=== PATIENT | male | born 1990 | race Two or more races ===

== ENCOUNTER 2018-03-03 10:23 | Emergency (ER) | payer MEDICAID ==
[~2018-03-03] VITALS: Ht 172.7 cm; Wt 78.5 kg
[2018-03-03] MEDS ORDERED: SODIUM CHLORIDE 0.9% 1,000 ML IV ONE (11:08)
[2018-03-03] MEDS ORDERED: LORazepam 2MG/ML-1ML VIAL IV ONE (11:15)
[2018-03-03 11:33] LABS: Basophils # (auto) 0 uL; Basophils % (auto) 0.7 % (0.0-2.0); Eosinophils # (auto) 0.1 uL; Lymphocytes # (auto) 0.9 uL; Lymphocytes % (auto) 13.6 % (10.0-50.0); Mean Corpuscular Hemoglobin 28.9 pg (28.0-32.0); Monocytes # (auto) 0.6 uL; Red Cell Distribution Width 13.3 % (11.8-14.3)
[2018-03-03 11:36] LABS: Eosinophils % (auto) 1.9 % (0.0-7.0); Hematocrit 52.3 % (41.0-53.0); Hemoglobin 17.2 g/dL (13.5-17.5); Mean Corpuscular Volume 87.7 fL (80.0-100.0); Monocytes % (auto) 9.1 % (0.0-12.0); Neutrophils % (auto) 74.7 % (37.0-80.0); Platelet Count (auto) 251 10^3/uL (140-450); Red Blood Cells 5.96 10^6/uL (4.5-5.90); White Blood Cell 6.7 10^3/uL (4.4-10.8)
[2018-03-03 11:41] LABS: BUN/Creatinine Ratio 13.4; Calcium 9.6 mg/dL (8.5-10.1); Potassium 3.4 mmol/L (3.5-5.1)
[2018-03-03 14:32] VITALS: BP 144/90
== END 2018-03-03 14:37 | disposition home or self-care (01) ==
LOC: ER 10:23
DX: F12.188 Cannabis abuse with other cannabis-induced disorder (principal); E11.9 Type 2 diabetes mellitus without complications; F12.10 Cannabis abuse, uncomplicated; E07.89 Other specified disorders of thyroid
CPT/HCPCS: 36415; 80048; 82962; 85025; 93005; 94761

== ENCOUNTER 2018-04-07 09:04 | Emergency (ER) | payer MEDICAID ==
[~2018-04-07] VITALS: Ht 172.7 cm; Wt 77.1 kg
[2018-04-07 09:45] LABS: Basophils # (auto) 0 uL; Basophils % (auto) 0.7 % (0.0-2.0); Eosinophils # (auto) 0.2 uL; Eosinophils % (auto) 2.8 % (0.0-7.0); Hemoglobin 17.5 g/dL (13.5-17.5); Lymphocytes # (auto) 1.5 uL; Lymphocytes % (auto) 22.3 % (10.0-50.0); Mean Corpuscular Hemoglobin 29.9 pg (28.0-32.0); Mean Corpuscular Hgb Conc. 34.4 g/dL (32.0-36.0); Mean Corpuscular Volume 86.9 fL (80.0-100.0); Monocytes # (auto) 0.4 uL; Monocytes % (auto) 5.5 % (0.0-12.0); Neutrophils # (auto) 4.5 uL; Neutrophils % (auto) 68.7 % (37.0-80.0); Nucleated Red Blood Cells % 0.2 %; Platelet Count (auto) 284 10^3/uL (140-450); Red Blood Cells 5.87 10^6/uL (4.5-5.90); Red Cell Distribution Width 13.3 % (11.8-14.3); White Blood Cell 6.6 10^3/uL (4.4-10.8)
[2018-04-07 10:02] LABS: Urine Bacteria NONE SEEN /hpf (None Seen); Urine Blood Negative /uL (Negative); Urine Mucus FEW (None Seen); Urine Specific Gravity 1.018 (1.001-1.035); Urine WBC 1 /hpf (0 - 3)
[2018-04-07 10:02] LABS: Albumin 5.2 g/dL (3.4-5.0); Calcium 9.5 mg/dL (8.5-10.1); Potassium 3.5 mmol/L (3.5-5.1)
[2018-04-07 10:07] LABS: BUN/Creatinine Ratio 13.2; Bilirubin, Total 1.5 mg/dL (0.2-1.0); Total Protein 9.2 g/dL (6.4-8.2)
[2018-04-07 11:49] VITALS: BP 118/79
== END 2018-04-07 11:52 | disposition home or self-care (01) ==
LOC: ER 09:04
DX: R10.9 Unspecified abdominal pain (principal); R19.7 Diarrhea, unspecified; R11.0 Nausea; E11.9 Type 2 diabetes mellitus without complications; F12.10 Cannabis abuse, uncomplicated; Z86.39 Personal history of other endocrine, nutritional and metabolic disease
CPT/HCPCS: 36415; 74176; 80053; 81001; 82150; 82962; 83690; 85025

== ENCOUNTER 2018-05-20 14:34 | Inpatient (IN) | payer MEDICAID ==
[~2018-05-20] VITALS: Ht 172.7 cm; Wt 75.2 kg
[2018-05-20] MEDS ORDERED: SODIUM CHLORIDE 0.9% 1,000 ML IV ONE ×2 (16:00)
[2018-05-20] MEDS ORDERED: MORPHINE SULFATE 4 MG/ML SYR/VIAL IV ONE (16:00)
[2018-05-20] MEDS ORDERED: ONDANSETRON HCL 4 MG/2 ML VIAL IV ONE (16:00)
[2018-05-20 16:13] LABS: Basophils # (auto) 0.1 uL; Basophils % (auto) 0.8 % (0.0-2.0); Eosinophils # (auto) 0.4 uL; Eosinophils % (auto) 4.1 % (0.0-7.0); Hematocrit 48.4 % (41.0-53.0); Hemoglobin 16.5 g/dL (13.5-17.5); Lymphocytes # (auto) 1.6 uL; Lymphocytes % (auto) 17.8 % (10.0-50.0); Mean Corpuscular Hemoglobin 29.7 pg (28.0-32.0); Mean Corpuscular Hgb Conc. 34.1 g/dL (32.0-36.0); Mean Corpuscular Volume 87.1 fL (80.0-100.0); Monocytes # (auto) 0.7 uL; Monocytes % (auto) 8.2 % (0.0-12.0); Neutrophils # (auto) 6.1 uL; Neutrophils % (auto) 69.1 % (37.0-80.0); Nucleated Red Blood Cells % 0.1 %; Platelet Count (auto) 287 10^3/uL (140-450); Red Blood Cells 5.56 10^6/uL (4.5-5.90); Red Cell Distribution Width 14.2 % (11.8-14.3); White Blood Cell 8.8 10^3/uL (4.4-10.8)
[2018-05-20 16:29] LABS: Albumin 4.8 g/dL (3.4-5.0); Calcium 9.4 mg/dL (8.5-10.1); Potassium 3.7 mmol/L (3.5-5.1)
[2018-05-20] MEDS ORDERED: metroNIDAZOLE 500MG/100ML 100 ML IV ONE (16:30)
[2018-05-20 16:33] LABS: BUN/Creatinine Ratio 10.4; Bilirubin, Total 1.4 mg/dL (0.2-1.0); Total Protein 8.7 g/dL (6.4-8.2)
[2018-05-20] MEDS ORDERED: HYDROcodone-ACET 5/325MG TAB PO PRN (20:45)
[2018-05-20] MEDS ORDERED: PANTOPRAZOLE 40 MG/10 ML VIAL IV ONE (20:45)
[2018-05-20] MEDS ORDERED: DEXTROSE (50%) 50ML SYRG IV PRN (20:45)
[2018-05-21] MEDS: ACCU-CHEK COMFORT CURVE STRIP VI SCH ×5 (00:19→23:39)
[2018-05-21] MEDS: InsuLIN REG 1unit/0.01ml Soln (100units/ml) SC SCH ×5 (06:00→23:40)
[2018-05-21 07:34] LABS: Urine Bacteria NONE SEEN /hpf (None Seen); Urine Blood Negative /uL (Negative); Urine Mucus FEW (None Seen); Urine Specific Gravity 1.018 (1.001-1.035); Urine WBC 1 /hpf (0 - 3)
[2018-05-21] MEDS: MORPHINE SULF INJ 2 MG/ML SYRINGE 1ML IV PRN ×4 (08:19→22:42)
--- NOTE | 2018-05-21 09:50 | NUR ---
Telemetry admit from [facility] ULLOA admitted to [facility] unit. Patient oriented to YFN DEVINE RN primary RN, unit, room 223B, bed, and unit policies regarding patient care and visiting hours. Patient weighed by bedscale and encouraged to call if they need something. All questions and concerns addressed, patient verbalized understanding. Bed in low and locked position, rails up x2, no-slip socks on. Family at bedside.
[2018-05-21] MEDS ORDERED: PANTOPRAZOLE 40 MG/10 ML VIAL IV SCH (10:00)
--- NOTE | 2018-05-21 10:00 | NUR ---
MRSA SWAB COLLECTED
[2018-05-21 10:16] VITALS: BP 135/70
[2018-05-21 10:34] LABS: Basophils # (auto) 0.1 uL; Basophils % (auto) 1.2 % (0.0-2.0); Eosinophils # (auto) 0.5 uL; Eosinophils % (auto) 9.9 % (0.0-7.0); Hematocrit 38.9 % (41.0-53.0); Hemoglobin 13.3 g/dL (13.5-17.5); Lymphocytes # (auto) 1.3 uL; Lymphocytes % (auto) 28.1 % (10.0-50.0); Mean Corpuscular Hemoglobin 30.1 pg (28.0-32.0); Mean Corpuscular Hgb Conc. 34.3 g/dL (32.0-36.0); Mean Corpuscular Volume 87.7 fL (80.0-100.0); Monocytes # (auto) 0.3 uL; Monocytes % (auto) 7.4 % (0.0-12.0); Neutrophils # (auto) 2.5 uL; Neutrophils % (auto) 53.4 % (37.0-80.0); Platelet Count (auto) 220 10^3/uL (140-450); Red Blood Cells 4.43 10^6/uL (4.5-5.90); Red Cell Distribution Width 14.2 % (11.8-14.3); White Blood Cell 4.6 10^3/uL (4.4-10.8)
[2018-05-21 10:48] LABS: Albumin 3.7 g/dL (3.4-5.0); Calcium 7.8 mg/dL (8.5-10.1); INR 1.06 (0.9-1.15); Partial Thromboplastin Time 27.1 sec (23.78-33.04); Potassium 3.7 mmol/L (3.5-5.1); Prothrombin Time 11.3 sec (9.27-12.13)
[2018-05-21] MEDS ORDERED: DIVA250T51 PO (10:48)
[2018-05-21] MEDS ORDERED: HYDR100C PO (10:48)
[2018-05-21] MEDS ORDERED: PAR20T PO (10:48)
[2018-05-21] MEDS ORDERED: CHOL400T21 PO (10:48)
[2018-05-21] MEDS ORDERED: OMEP20TA PO (10:48)
[2018-05-21] MEDS ORDERED: LEVO50TA7 PO (10:48)
[2018-05-21] MEDS ORDERED: METR500T14 PO (10:48)
[2018-05-21] MEDS ORDERED: METF-370 PO (10:48)
[2018-05-21] MEDS ORDERED: CEPH500C PO (10:48)
[2018-05-21 10:53] LABS: BUN/Creatinine Ratio 11.1; Total Protein 6.6 g/dL (6.4-8.2)
--- NOTE | 2018-05-21 11:50 | NUR ---
STOOL SAMPLE COLLECTED C-DIFF WITH PAPERWORK COMPLETED, OCCULT BLOOD
[2018-05-21 12:30] VITALS: BP 104/69
--- NOTE | 2018-05-21 14:12 | NUR ---
STEVE POPE AT BEDSIDE NEW ORDERS RECEIVED
[2018-05-21] MEDS: SOD CHL 0.45% 1,000 ML IV SCH (15:16)
[2018-05-21] MEDS ORDERED: ALPRAZolam 0.25 MG TAB PO PRN (16:15)
[2018-05-21 17:05] VITALS: BP 119/72
--- NOTE | 2018-05-21 19:45 | NUR ---
Opening Shift note: Assumed care for patient patient is alert and oriented x 4. No s/s of distress or sob. Patient has family bedside and is instructed on poc and to call for assistance. Bed is in lowest position and call light is within reach. Patient states " I have pain in my stomach 8 out of 10". This nurse is to check eMAR for order for pain.
--- NOTE | 2018-05-21 20:00 | NUR ---
Pain Patient was informed that they could have [place]. Patient refused [place] and state "I will wait for Morphine. I do not want any pills." Will medicate when Morphine is available. See eMar.
[2018-05-21 22:00] VITALS: BP 107/61
[2018-05-21] MEDS: PANTOPRAZOLE 40 MG/10 ML VIAL IV SCH (22:43)
[2018-05-21] MEDS: ONDANSETRON HCL 4 MG/2 ML VIAL IV PRN (23:40)
[2018-05-22] MEDS: SOD CHL 0.45% 1,000 ML IV SCH ×2 (03:52→23:18)
--- NOTE | 2018-05-22 04:00 | NUR ---
Blood Glucose: Patient requested that his blood sugar be checked at this time. Patient states, " When I sleep my blood sugar goes down." Blood sugar was 63. Patient was educated on being NPO per MD orders. Patient verbalized understanding, but states, " my blood sugar will continue to go down and I would prefer the juice because I feel dizzy". Patient was given one apple juice and one orange juice. will continue to monitor patient.
[2018-05-22 05:00] VITALS: BP 109/73
[2018-05-22] MEDS: InsuLIN REG 1unit/0.01ml Soln (100units/ml) SC SCH ×4 (05:47→23:45)
[2018-05-22] MEDS: ACCU-CHEK COMFORT CURVE STRIP VI SCH ×4 (05:47→23:45)
[2018-05-22 06:22] LABS: Basophils # (auto) 0.1 uL; Eosinophils # (auto) 0.5 uL; Eosinophils % (auto) 11.2 % (0.0-7.0); Hematocrit 38.9 % (41.0-53.0); Hemoglobin 13.3 g/dL (13.5-17.5); Lymphocytes # (auto) 1.1 uL; Lymphocytes % (auto) 24.5 % (10.0-50.0); Mean Corpuscular Hgb Conc. 34.1 g/dL (32.0-36.0); Mean Corpuscular Volume 87.9 fL (80.0-100.0); Monocytes # (auto) 0.4 uL; Neutrophils # (auto) 2.4 uL; Neutrophils % (auto) 53.3 % (37.0-80.0); Nucleated Red Blood Cells % 0.1 %; Platelet Count (auto) 214 10^3/uL (140-450); Red Blood Cells 4.43 10^6/uL (4.5-5.90); Red Cell Distribution Width 14.3 % (11.8-14.3); White Blood Cell 4.5 10^3/uL (4.4-10.8)
[2018-05-22 06:40] LABS: BUN/Creatinine Ratio 7.9; Calcium 8.1 mg/dL (8.5-10.1); Potassium 3.5 mmol/L (3.5-5.1)
--- NOTE | 2018-05-22 07:51 | NUR ---
Closing Shift note: Report given and care endorsed with to Becky day nurse. Patient is awake and alert. no s/s of distress or sob. Patient denies pain. Patient is in the restroom and educated to pull red cord if need assistance.
--- NOTE | 2018-05-22 08:05 | NUR ---
Opening Shift Note Assumed care of patient, awake and alert and oriented. No S/S of distress/SOB or pain. Instructed on POC and to call for assist PRN, will continue to monitor for changes.
[2018-05-22 09:00] VITALS: BP 119/73
[2018-05-22] MEDS: PANTOPRAZOLE 40 MG/10 ML VIAL IV SCH ×2 (09:39→22:40)
[2018-05-22] MEDS: ONDANSETRON HCL 4 MG/2 ML VIAL IV PRN ×2 (12:50→23:46)
[2018-05-22] MEDS: MORPHINE SULF INJ 2 MG/ML SYRINGE 1ML IV PRN (12:50)
[2018-05-22 12:52] VITALS: BP 122/75
--- NOTE | 2018-05-22 15:07 | NUR ---
Nutrition Assessment/consult Notes please see attached link for complete assessment Est. Needs BW [id number] kcal (25-30 kcal/kgBW), 77-92 gms pro (1.0-1.2 gms/kgBW). Will continue to monitor pertinent labs and reassess nutrient need prn Addendum: 05/22/18 at [address] Amended: Links added.
--- NOTE | 2018-05-22 15:25 | NUR ---
Dr Dada ling paged regarding pt requesting diet. Will continue to await call back.
[2018-05-22] MEDS ORDERED: IPRATROPIUM BROM 0.5 MG/2.5ML INH SOL NEB PRN (16:30)
[2018-05-22] MEDS ORDERED: ALBUTEROL SULF 2.5 MG/0.5ML(0.5%) NEB SOLN NEB PRN (16:30)
--- NOTE | 2018-05-22 16:30 | NUR ---
Dr Trujillo at bedside. Per Dr Trujillo new order received for [facility] diet. Will continue to monitor.
[2018-05-22 17:00] VITALS: BP 127/76
--- NOTE | 2018-05-22 19:23 | NUR ---
Patient care and report handed off to Jayne AVILEZ. Made aware pt NPO after midnight for EGD 05/23/[address] Dada Garza.
[2018-05-22 20:50] VITALS: BP 127/76
[2018-05-22 21:00] VITALS: BP_SYST 106; BP_SYST 124; BP_DIAS 65; BP_DIAS 69
--- NOTE | 2018-05-22 21:22 | NUR ---
Respiratory note: At bedside to assess pt for prn tx. Tx not indicated at this time. BS are clear t/o, pox 98% on RA, hr 58bpm, Pts at bedside. Pt aware of prn orders and aware he can have me paged at any time he feels sob or having any concern with his breathing. rt name and pager assignment written on pts room board will continue to monitor as needed.
[2018-05-23 05:00] VITALS: BP 123/77
[2018-05-23] MEDS: InsuLIN REG 1unit/0.01ml Soln (100units/ml) SC SCH ×3 (06:00→17:51)
--- NOTE | 2018-05-23 06:00 | NUR ---
Respiratory note: ROUTINE PRN TX CHECK. HR 73, RR 16, POX 97% ON RA, BREATH SOUNDS ARE CLEAR. NO SOB OR DISTRESS NOTED AT THIS TIME. PT WAS NOTIFY TO HAVE RN PAGE RT FOR [place] TX.
[2018-05-23] MEDS: ACCU-CHEK COMFORT CURVE STRIP VI SCH ×3 (06:27→17:51)
--- NOTE | 2018-05-23 07:45 | NUR ---
OPENING NOTE Assumed care of patient from NOC RN. Patient awake and alert with no S/S of distress/SOB or pain. Instructed on POC and to call for assist PRN, verbalized understanding. Bed in lowest, locked position with side rails up x2 and call light within reach. Will continue to monitor for changes Q1hr and PRN.
[2018-05-23 08:44] VITALS: BP 124/78
[2018-05-23] MEDS: PANTOPRAZOLE 40 MG/10 ML VIAL IV SCH (09:35)
[2018-05-23] MEDS: SOD CHL 0.45% 1,000 ML IV SCH ×2 (09:36→19:50)
[2018-05-23 13:00] VITALS: BP 131/83
[2018-05-23] MEDS ORDERED: SODIUM CHLORIDE LOCK 10 ML ONE (15:15)
[2018-05-23] MEDS ORDERED: LIDOCAINE VISCOUS 2% 15ML UD ONE (15:15)
--- NOTE | 2018-05-23 16:26 | NUR ---
OFF UNIT Patient taken off unit via bed for scheduled EGD. Spouse at bedside. No S/S of distress noted.
[2018-05-23] MEDS: fentaNYL CITRATE 100 MCG/2 ML VL ONE ×2 (16:57→17:00)
[2018-05-23] MEDS: MIDAZOLAM HCL 5 MG/ML-1ML VIAL ONE ×3 (16:57→17:02)
[2018-05-23] MEDS: diphenhdrAMINE HCL 50 MG/1 ML VL ONE ×2 (16:57→17:00)
--- NOTE | 2018-05-23 17:40 | NUR ---
RETURN TO UNIT Patient returned to unit via bed. No S/S of distress noted upon arrival.
--- NOTE | 2018-05-23 19:35 | NUR ---
Opening Shift Note Assumed care of patient from day shift RN Gabriella. Pt is awake and alert and oriented x4. No S/S of distress. Pt c/o mild nausea, refuses nausea medications at this time but requesting to stay until feeling less nauseous. Safety maintained with bed rails upx2, locked and in lowest position with call naqvi within reach. Instructed on POC and to call for assist PRN, will continue to monitor for changes Q1hr and PRN. at bedside.
--- NOTE | 2018-05-23 19:35 | NUR ---
CLOSING NOTE Endorsed care of patient to NOC FATMATA, Erin.
--- NOTE | 2018-05-23 19:50 | NUR ---
IV removal LEFT WRIST IV DC'd with clean sterile technique, catheter fully intact. Pressure dressing applied to site. Patient tolerated well.
--- NOTE | 2018-05-23 21:19 | NUR ---
NAUSEA PT C/O NAUSEA, ZOFRAN ORDERED BUT PT'S IV D/C'D. PT REFUSING NEW IV INSERTION. REQUESTING TO WAIT A LITTLE LONGER UNTIL LESS NAUSEOUS TO D/C HOME.
--- NOTE | 2018-05-23 21:27 | NUR ---
D/C PT D/C HOME WITH , AMBULATED TO PRIVATE VEHICLE. ID BANDS REMOVED, EXIT CARE INSTRUCTIONS GIVEN TO PATIENT.
[2018-05-23 22:00] VITALS: BP 115/71
[2018-05-23] MEDS ORDERED: SUCRALFATE 1 GM/10 ML ORAL SUSP PO SCH (22:00)
== END 2018-05-23 21:27 | disposition home or self-care (01) | DRG 241 ==
LOC: ER 14:34 → OVERFLOW 22:17 → CENTRAL 05-21 09:56
PROVIDERS: ADMIT Internal Medicine; ATTEND Internal Medicine
PROC: 0DB88ZX Excision of Small Intestine, Via Natural or Artificial Opening Endoscopic, Diagnostic (ICD-10-PCS; 2018-05-23)
PROC: 0DB68ZX Excision of Stomach, Via Natural or Artificial Opening Endoscopic, Diagnostic (ICD-10-PCS; principal; 2018-05-23 16:54)
DX: K25.4 Chronic or unspecified gastric ulcer with hemorrhage (principal); E87.8 Other disorders of electrolyte and fluid balance, not elsewhere classified; F41.9 Anxiety disorder, unspecified; E03.9 Hypothyroidism, unspecified; E11.9 Type 2 diabetes mellitus without complications; K44.9 Diaphragmatic hernia without obstruction or gangrene; K29.71 Gastritis, unspecified, with bleeding; K52.9 Noninfective gastroenteritis and colitis, unspecified
CPT/HCPCS: 36415; 74176; 80048; 80053; 81001; 82270; 82962; 83690; 84443; 85025; 85610; 85730; 86850; 86900; 86901; 87081; 87493; 96361; 96365; 96375; C9113; G0378; J1815; J2250; J2405; J3490

== ENCOUNTER 2018-05-25 12:19 | Emergency (ER) | payer MEDICAID ==
[~2018-05-25] VITALS: Ht 172.7 cm; Wt 72.6 kg
[~2018-05-25 12:19] MED LIST: CHOL400T21 PO; DIVA250T51 PO; HYDR100C PO; LEVO50TA7 PO; METF-370 PO; METR500T14 PO; OMEP20TA PO; PAR20T PO
[2018-05-25 12:58] LABS: Basophils # (auto) 0.1 uL; Basophils % (auto) 0.9 % (0.0-2.0); Eosinophils # (auto) 0.2 uL; Eosinophils % (auto) 2.8 % (0.0-7.0); Hematocrit 47.2 % (41.0-53.0); Hemoglobin 15.8 g/dL (13.5-17.5); Lymphocytes # (auto) 1.2 uL; Lymphocytes % (auto) 18.5 % (10.0-50.0); Mean Corpuscular Hemoglobin 29.4 pg (28.0-32.0); Mean Corpuscular Hgb Conc. 33.5 g/dL (32.0-36.0); Mean Corpuscular Volume 87.8 fL (80.0-100.0); Monocytes # (auto) 0.4 uL; Monocytes % (auto) 6.2 % (0.0-12.0); Neutrophils # (auto) 4.5 uL; Neutrophils % (auto) 71.6 % (37.0-80.0); Nucleated Red Blood Cells % 0.1 %; Platelet Count (auto) 281 10^3/uL (140-450); Red Blood Cells 5.37 10^6/uL (4.5-5.90); Red Cell Distribution Width 13.7 % (11.8-14.3); White Blood Cell 6.3 10^3/uL (4.4-10.8)
[2018-05-25 13:17] LABS: Albumin 4.8 g/dL (3.4-5.0); Calcium 9.8 mg/dL (8.5-10.1); Potassium 3.8 mmol/L (3.5-5.1)
[2018-05-25 13:19] LABS: BUN/Creatinine Ratio 10.5
[2018-05-25 13:22] LABS: Bilirubin, Total 0.8 mg/dL (0.2-1.0); Total Protein 8.4 g/dL (6.4-8.2)
[2018-05-25 17:56] VITALS: BP 114/71
== END 2018-05-25 16:29 | disposition home or self-care (01) ==
LOC: ER 12:27
DX: R07.89 Other chest pain (principal); E11.9 Type 2 diabetes mellitus without complications; E07.9 Disorder of thyroid, unspecified; Z90.49 Acquired absence of other specified parts of digestive tract; Z79.84 Long term (current) use of oral hypoglycemic drugs; Z79.899 Other long term (current) drug therapy
CPT/HCPCS: 36415; 71046; 80053; 85025

== ENCOUNTER 2019-05-25 17:39 | Emergency (ER) | payer MEDICAID ==
[~2019-05-25] VITALS: Ht 172.7 cm; Wt 69.9 kg
[2019-05-25 18:14] VITALS: BP 134/80
[2019-05-25] MEDS ORDERED: PANTOPRAZOLE 40 MG/10 ML VIAL INJ IV STA (18:26)
[2019-05-25] MEDS ORDERED: SODIUM CHLORIDE 0.9% 1,000 ML IVB ONE (18:26)
[2019-05-25 18:30] LABS: Basophils # (auto) 0.1 10 ^3/uL (0-0.2); Basophils % (auto) 0.8 % (0.0-2.0); Eosinophils # (auto) 0.1 10 ^3/uL (0-0.8); Eosinophils % (auto) 1.4 % (0.0-7.0); Hematocrit 46.2 % (41.0-53.0); Hemoglobin 15.8 g/dL (13.5-17.5); Lymphocytes # (auto) 2.3 10 ^3/uL (0.4-5.4); Lymphocytes % (auto) 34.3 % (10.0-50.0); Mean Corpuscular Hgb Conc. 34.1 g/dL (32.0-36.0); Mean Corpuscular Volume 87.8 fL (80.0-100.0); Monocytes # (auto) 0.4 10 ^3/uL (0-1.3); Monocytes % (auto) 5.7 % (0.0-12.0); Neutrophils # (auto) 3.9 10 ^3/uL (1.6-8.6); Neutrophils % (auto) 57.8 % (37.0-80.0); Nucleated Red Blood Cells % 0.1 %; Platelet Count (auto) 270 10^3/uL (140-450); Red Blood Cells 5.27 10^6/uL (4.5-5.90); Red Cell Distribution Width 13.3 % (11.8-14.3); White Blood Cell 6.7 10^3/uL (4.4-10.8)
[2019-05-25] MEDS ORDERED: MORPHINE SULFATE 4 MG/ML SYR/VIAL IV ONE (18:30)
[2019-05-25] MEDS ORDERED: PROCHLORPERAZINE EDISYLATE 5 MG/ML 2ML VIAL IV ONE (18:30)
[2019-05-25 18:48] LABS: Potassium 3.5 mmol/L (3.5-5.1)
[2019-05-25 18:55] LABS: Albumin 4.7 g/dL (3.4-5.0); BUN/Creatinine Ratio 13.1; Bilirubin, Total 1.3 mg/dL (0.2-1.0); Calcium 9.5 mg/dL (8.5-10.1); Total Protein 8.2 g/dL (6.4-8.2)
== END 2019-05-25 19:30 | disposition left against medical advice (07) ==
LOC: ER 17:39
DX: R10.13 Epigastric pain (principal); R11.2 Nausea with vomiting, unspecified; E11.9 Type 2 diabetes mellitus without complications; E03.9 Hypothyroidism, unspecified; Z90.49 Acquired absence of other specified parts of digestive tract; Z79.899 Other long term (current) drug therapy
CPT/HCPCS: 36415; 74176; 80053; 83690; 85025; 96361; 96374; 96375; 99284; C9113; J0780; J2270; J7030